=== PATIENT | female | born 1955 | race Caucasian/White ===

== ENCOUNTER 2022-06-23 19:43 | Emergency (ER) | payer OTHER | END 2022-06-24 14:21 | disposition home or self-care (01) | LOC: ER 19:43 | DX: R42 Dizziness and giddiness (principal); Z88.6 Allergy status to analgesic agent; Z88.2 Allergy status to sulfonamides; I10 Essential (primary) hypertension; E03.9 Hypothyroidism, unspecified; F03.90 Unspecified dementia, unspecified severity, without behavioral disturbance, psychotic disturbance, mood disturbance, and anxiety; F41.8 Other specified anxiety disorders; K21.9 Gastro-esophageal reflux disease without esophagitis; J31.0 Chronic rhinitis; J44.9 Chronic obstructive pulmonary disease, unspecified ==